=== PATIENT | male | born 1940 | race Caucasian/White ===

== ENCOUNTER 2018-11-25 11:13 | Inpatient (IN) | payer MEDICARE, MEDICAID ==
[2018-11-25 13:52] VITALS: BMI 25.7
[2018-11-25] MEDS ORDERED: Lorazepam 2 MG/ML VIAL SLOW IVP SCH (15:15)
--- NOTE | 2018-11-25 15:58 | MRI ---
MRI BRAIN WITHOUT CONTRAST: HISTORY: CVA. Slurred speech with right-sided weakness and facial droop COMPARISON: 02/24/2005 CORRELATION: CT scan from 11/25/2018. FINDINGS: No restricted diffusion is seen. There are multiple foci of T2 prolongation in the periventricular wh ite matter, consistent with chronic small vessel ischemic disease. The ventricular size is appropriate and the basilar cisterns are patent. Changes of cortical atrophy are present. No evidence of acute infarct, hemorrhage, midline shift or abnormal extra-axial fluid collections is seen. The visualized paranasal sinuses and mastoid air cells are well-aerated. IMPRESSION: No evidence of acute intracranial process.
--- NOTE | 2018-11-25 16:17 | ULT ---
Ultrasound Doppler duplex carotid: DATE: 11/25/2018 HISTORY: 78-year-old male with acute stroke symptoms. TECHNIQUE: Grayscale, color-flow, and spectral analysis, of major arteries of neck. FINDINGS: Moderate sized at least one atheromatous calcified plaque at origin of right internal carotid. Multifocal moderate sized atheromatous calcified plaque at proximal left internal carotid, including origin. Multifocal tiny atherosclerotic plaque in left common carotid. Highest peak systolic velocities in the internal carotid arteries are 55 cm/s on the right and 100 cm /s on the left. No left vertebral artery blood flow is detected. Right vertebral artery flow is antegrade. IMPRESSION: 1. Left vertebral artery flow not detected. 2. Atherosclerosis of carotid arteries, especially left internal carotid. 3. No evidence of hemodynamically significant stenosis within the visualized cervical portions of the internal carotid arteries.
[2018-11-25] MEDS: Atorvastatin Calcium 40 MG TAB PO SCH (20:44)
--- NOTE | 2018-11-25 22:52 | HP ---
PRIMARY CARE PHYSICIAN: Stefano Hunt MD CHIEF COMPLAINT: Right-sided motor deficits, weakness, slurred speech and right-sided facial droop. HISTORY OF PRESENT ILLNESS: Mr. Villagran is a 78-year-old man with a past medical history of hypertension, previous CVA in January 2014, and chronic kidney disease, who had presented to outside [place] ED or earlier today after he has been experiencing slurred speech and right-sided weakness over the last 2 to 3 days. He states that he has also been have been a slight facial droop along with an unsteady gait and gaze to the right. His workup included a portable chest x-ray, which found no acute cardiopulmonary findings. He also underwent a CT of brain without contrast, which showed no acute intracranial findings, however, multiple tiny old lacunar infarctions in the bilateral corpus striatum and thalami were noted along with chronic ischemic white matter changes. He was given a full dose of aspirin and then transferred to [facility] for further workup and management of his presumable stroke. Upon arriving, he had denied any fever, chills, any headache or blurred vision, chest pain, palpitations, shortness of breath, abdominal pain, nausea, vomiting. However, does state that he is having the right-sided weakness as mentioned above along with some frat-ex-uynwnejg slurred speech and right leg weakness. He had stated that it felt like he was almost drunk, but he had denied any alcohol use. His labs showed consistency for his CKD with a creatinine of 2.76 and estimated GFR of 22, and further workup pending at this time. REVIEW OF SYSTEMS: All other systems reviewed and found to be negative unless mentioned in HPI. PAST MEDICAL HISTORY: Hypertension, CVA in 2013, and chronic kidney disease stage 4. PAST SURGICAL HISTORY: He had left shoulder surgery. PSYCHIATRIC HISTORY: None. SOCIAL HISTORY: The patient denies alcohol, tobacco, or illicit drug use. He currently lives home alone. KNOWN ALLERGIES: No known drug allergies. CURRENT HOME MEDICATIONS: 1. Aspirin 81 mg daily. 2. Atenolol 50 mg oral daily. PHYSICAL EXAMINATION: VITAL SIGNS: BP 155/82, pulse 54, respirations 16, temperature 98.8, O2 saturations 100% on room air. GENERAL: The patient is awake, alert, and oriented x3. He is currently lying comfortably in bed and in no acute distress. His close friend is at bedside. HEENT: Atraumatic, normocephalic. Pupils are round and reactive to light. Extraocular muscles intact. Moist mucous membranes noted. Poor oral hygiene noted. NECK: Soft, supple. Trachea midline. CARDIOVASCULAR: Positive S1 and S2. Slightly bradycardic on the monitor. Otherwise, no murmur auscultated. RESPIRATORY: Clear to auscultation bilaterally. No wheezes, rales, rhonchi. ABDOMEN: Soft, nontender. Bowel sounds present. MUSCULOSKELETAL: Does have normal range of motion with no edema noted. NEUROLOGIC: Cranial nerves 2 through 12 grossly intact. He does appear to have some slurred speech along with some numbness and weakness on the right side and drift of his right lower extremity. SKIN: Warm, dry, and intact. No rashes. No ulceration noted. PSYCHIATRIC: Good mood and affect. LABORATORY DATA: WBC 8.1, RBC 4.11, hemoglobin 12.5, hematocrit 38.3, platelet 187. Sodium 142, potassium 4.7, anion gap 15, BUN 28, creatinine 2.76, estimated GFR 22, glucose 100. Troponin less than 0.010. BNP 35.9. DIAGNOSTIC IMAGING: Portable chest x-ray showed no acute findings. CT brain without contrast showed no acute intracranial findings, however, multiple tiny old lacunar infarctions in the bilateral corpus striatum and thalami noted along with chronic ischemic white matter changes. ASSESSMENT/PLAN: 1. Possible cerebrovascular accident. We will order an MRI of brain without contrast, carotid Dopplers and echocardiogram for further evaluation. He will be started on a full dose aspirin along with statin therapy. A consult was placed for Dr. Orourke for further recommendations and stroke team is also consulted. 2. Hypertension. We will monitor blood pressure and other vital signs closely. Due to some mild bradycardia, his home dose of atenolol will be held at this time and we will potentially restart once his heart rate improves. 3. Chronic kidney disease stage 4. We will repeat BMP in the morning, but this appears to be at baseline. 4. Deep venous thrombosis and gastrointestinal prophylaxis. 5. Code status. Full code. 6. Surrogate decision maker is Manan Murphy. DISPOSITION: Pending further workup and clinical findings. Job ID: [id number]
[2018-11-26 01:42] LABS: Bacteria/HPF None Seen HPF (None Seen); Bilirubin Negative (Negative); Blood, Urine 2+ (Negative); Clarity Clear (Clear); Glucose, Urine (Dipstick) Normal (Negative); Leukocyte 25 Leu/uL (Negative); Nitrite Negative (Negative); Protein, Urine (Dipstick) Negative (Neg-Trace); RBC/HPF Greater than 50 HPF (0-3); Squamous Epithelial 0-3 HPF (0-3); Urobilinogen Normal mg/dL (Less than 2)
[2018-11-26 01:43] LABS: Urine Culture Reflex Yes Yes
[2018-11-26 04:15] LABS: #Basophils 0.1 thou/uL (0.0-0.2); #Eosinphils 0.1 thou/uL (0.0-0.7); #Lymphocytes 2.9 thou/uL (1.20-3.40); #Monocytes 0.8 thou/uL (0.11-0.59); #Neutrophils 7.6 thou/uL (1.40-6.50); %Basophils 0.5 % (0.0-1.0); %Eosinophils 1.1 % (0.0-10.0); %Lymphocytes 25.6 % (21.0-51.0); %Monocytes 6.9 % (0.0-10.0); Hemoglobin 13.1 g/dL (14.0-18.0); Mean Corpuscular HGB CONC 34.6 g/dL (32.0-36.0); Mean Corpuscular Hemoglobin 32.1 pg (27.0-31.0); Mean Corpuscular Volume 92.9 fL (78.0-98.0); Mean Platelet Volume 6.4 fL (7.4-10.4); Platelet Count 184 thou/uL (130-400); RBC Distribution Width 14.1 % (11.5-14.5); Red Blood Cell (RBC) Count 4.07 mill/uL (4.70-6.10); White Blood Cell (WBC) Count 11.5 thou/uL (4.8-10.8)
[2018-11-26 04:35] LABS: Anion Gap 13 mmol/L (10-20); BUN (Urea Nitrogen) 30 mg/dL (8.4-25.7); Calc. Creatinine Clearance 27 mL/min (70-130); Calcium 9.5 mg/dL (7.8-10.44); Carbon Dioxide 22 mmol/L (23-31); Cardiac Risk 8.8 (Less than 4.5); Chloride 110 mmol/L (98-107); Cholesterol 254 mg/dl (< 200 Desired); Estimated GFR-MDRD 27; Glucose 94 mg/dL (83-110); HDL Cholesterol 29 mg/dL (>60 Neg Risk); LDL Cholesterol, Calculated 162 mg/dL; Potassium 4.7 mmol/L (3.5-5.1); Sodium 140 mmol/L (136-145); Triglycerides 314 mg/dL (Less than 150)
[2018-11-26] MEDS ORDERED: Aspirin 81 mg Enteric Coated Tablet PO SCH (09:00)
[2018-11-26] MEDS: Aspirin 325 MG TAB PO SCH (09:23)
--- NOTE | 2018-11-26 09:54 | CON ---
DATE OF CONSULTATION: 11/26/2018 CONSULTING PHYSICIAN: Hospitalist Service. IMPRESSION: 1. Prior stroke with mild right facial asymmetry. 2. Hyperlipidemia. 3. Hypertension. PLAN: 1. Full-dose aspirin. 2. Statin to address his hyperlipidemia. 3. Echocardiogram. 4. The patient can be discharged home after his bladder issues have been addressed. HISTORY OF PRESENT ILLNESS: Mr. Villagran is a 78-year-old man, who reports that he felt like he has been more unsteady on his feet for the last 2 or 3 days. He was brought to the hospital for evaluation and subsequently transferred here. He reports a prior history of a stroke sometime back. He was reports taking medication for blood pressure, but nothing else. He was noted to have some facial droop and was admitted for further evaluation. His MRI of the brain did not reveal any evidence of an acute event. He has moderate amount of small-vessel ischemic changes that are chronic. His carotid ultrasound showed no left vertebral artery flow, but otherwise no significant stenosis. His vital signs have been stable. He is afebrile. LABORATORY STUDIES: Notable for a cholesterol ratio of 8.8. PAST MEDICAL HISTORY: Hypertension. ALLERGIES: NONE. SOCIAL HISTORY: No tobacco use. FAMILY HISTORY: Noncontributory. MEDICATIONS: Reviewed. REVIEW OF SYSTEMS: Ten-system review of systems is otherwise negative. PHYSICAL EXAMINATION: VITAL SIGNS: Blood pressure 162/85, pulse 68, respirations 16, and temperature 98.4. HEENT: Pupils equal and reactive. Conjunctivae clear. Oropharynx clear. NECK: Supple. No lymphadenopathy. EXTREMITIES: No cyanosis, clubbing, or edema. NEUROLOGIC: He is alert and cooperative. He is a bit hard of hearing, but follows commands appropriately. There is a subtle right facial droop. His motor exam showed good strength bilaterally. There is no fix or drift. He could stand independently and pace in place. Sensation is intact bilaterally. SUMMARY: This is an elderly man, who has felt a bit unsteady over the last 2 or 3 days. I do not see any acute neurologic changes based on his MRI and his exam. I would address his risk factors and he can be discharged home. Job ID: [id number]
[2018-11-26] MEDS ORDERED: Tamsulosin HCl 0.4 MG CAP PO SCH (14:45)
[2018-11-26] MEDS ORDERED: Prevnar 13-Val Conj/PF 0.5 ML SYRINGE IM ONE (15:00)
[2018-11-26] MEDS: Atorvastatin Calcium 40 MG TAB PO SCH (20:15)
--- NOTE | 2018-11-27 07:09 | PDOC.HOSPP ---
- Subjective Encounter Date: 11/26/18 Subjective: Complaints of the Pa. Says he is leaking around it when he feels the urge to void. - Objective Vital Signs & Weight: Vital Signs (12 hours) Temp Pulse Resp BP Pulse Ox 11/27/18 03:15 98 F 68 16 119/61 97 11/26/18 23:50 98.5 F 68 16 127/67 98 11/26/18 19:59 98.4 F 76 18 145/71 H 96 Weight Weight 164 lb 6.4 oz I&O: 11/26/18 11/27/18 11/28/18 06:59 06:59 06:59 Intake Total 480 920 Output Total 1450 450 Balance -970 470 Result Diagrams: 11/26/18 03:58 11/26/18 03:57 Hospitalist ROS - Medication Medications: Active Medications Generic Name Dose Route Start Last Admin Trade Name Freq PRN Reason Stop Dose Admin Aspirin 325 mg 11/26/18 09:00 11/26/18 09:23 Aspirin PO 325 mg DAILY EUGENIA Administration Atorvastatin Calcium 40 mg 11/25/18 21:00 11/26/18 20:15 Lipitor PO 40 mg HS EUGENIA Administration Lorazepam 1 mg 11/25/18 15:15 11/25/18 15:17 Ativan SLOW IVP 1 mg WILLCALL EUGENIA Administration - Exam General Appearance: NAD, awake alert Heart: RRR, no murmur, no gallops, no rubs, normal peripheral pulses Respiratory: CTAB, no wheezes, no rales, no ronchi, normal chest expansion, no tachypnea, normal percussion Gastrointestinal: soft, non-tender, non-distended, normal bowel sounds, no palpable masses, no hepatomegaly, no splenomegaly, no bruit Musculoskeletal: normal tone, normal strength, no muscle wasting Psychiatric: normal affect Hosp A/P (1) Dysarthria as late effect of stroke Code(s): I69.322 - DYSARTHRIA FOLLOWING CEREBRAL INFARCTION Status: Acute (2) Retention of urine Code(s): R33.9 - RETENTION OF URINE, UNSPECIFIED Status: Acute (3) CKD (chronic kidney disease), stage IV Code(s): N18.4 - CHRONIC KIDNEY DISEASE, STAGE 4 (SEVERE) Status: Acute (4) HTN (hypertension) Code(s): I10 - ESSENTIAL (PRIMARY) HYPERTENSION Status: Acute (5) HLD (hyperlipidemia) Code(s): E78.5 - HYPERLIPIDEMIA, UNSPECIFIED Status: Acute - Plan Appreciate Neuro recs. On Statin, Asa. Will DC Pa. If he is able to void, will consider DC home.
[2018-11-27] MEDS: Aspirin 325 MG TAB PO SCH (08:28)
[2018-11-27 08:53] LABS: #Eosinphils 0.1 thou/uL (0.0-0.7); #Lymphocytes 2.1 thou/uL (1.20-3.40); #Monocytes 0.6 thou/uL (0.11-0.59); #Neutrophils 5.3 thou/uL (1.40-6.50); %Basophils 0.1 % (0.0-1.0); %Eosinophils 1.1 % (0.0-10.0); %Lymphocytes 25.7 % (21.0-51.0); %Monocytes 7.8 % (0.0-10.0); %Neutrophils 65.3 % (42.0-75.0); Hemoglobin 12.7 g/dL (14.0-18.0); Mean Corpuscular HGB CONC 34.8 g/dL (32.0-36.0); Mean Platelet Volume 6.4 fL (7.4-10.4); Platelet Count 159 thou/uL (130-400); RBC Distribution Width 14.2 % (11.5-14.5); Red Blood Cell (RBC) Count 3.97 mill/uL (4.70-6.10); White Blood Cell (WBC) Count 8.1 thou/uL (4.8-10.8)
[2018-11-27 09:12] LABS: Anion Gap 13 mmol/L (10-20); BUN (Urea Nitrogen) 26 mg/dL (8.4-25.7); Calc. Creatinine Clearance 32 mL/min (70-130); Calcium 9.4 mg/dL (7.8-10.44); Carbon Dioxide 21 mmol/L (23-31); Chloride 108 mmol/L (98-107); Estimated GFR-MDRD 32; Glucose 96 mg/dL (83-110); Potassium 4.3 mmol/L (3.5-5.1); Sodium 138 mmol/L (136-145)
[2018-11-27] MEDS: Atorvastatin Calcium 40 MG TAB PO SCH (20:27)
--- NOTE | 2018-11-28 08:01 | PDOC.HOSPP ---
- Subjective Encounter Date: 11/27/18 Subjective: Doing well. No new complaints. - Objective Vital Signs & Weight: Vital Signs (12 hours) Temp Pulse Resp BP Pulse Ox 11/28/18 03:54 97.8 F 66 18 150/74 H 97 11/27/18 23:15 98.1 F 67 18 167/77 H 98 Weight Weight 164 lb 6.4 oz I&O: 11/27/18 11/28/18 11/29/18 06:59 06:59 06:59 Intake Total 920 805 Output Total 450 Balance 470 805 Result Diagrams: 11/27/18 08:44 11/27/18 08:44 Hospitalist ROS - Medication Medications: Active Medications Generic Name Dose Route Start Last Admin Trade Name Freq PRN Reason Stop Dose Admin Aspirin 325 mg 11/26/18 09:00 11/27/18 08:28 Aspirin PO 325 mg DAILY EUGENIA Administration Atorvastatin Calcium 40 mg 11/25/18 21:00 11/27/18 20:27 Lipitor PO 40 mg HS EUGENIA Administration Lorazepam 1 mg 11/25/18 15:15 11/25/18 15:17 Ativan SLOW IVP 1 mg WILLCALL EUGENIA Administration - Exam General Appearance: NAD, awake alert Heart: RRR, no murmur, no gallops, no rubs, normal peripheral pulses Respiratory: CTAB, no wheezes, no rales, no ronchi, normal chest expansion, no tachypnea, normal percussion Gastrointestinal: soft, non-tender, non-distended, normal bowel sounds, no palpable masses, no hepatomegaly, no splenomegaly, no bruit Extremities: no cyanosis, no clubbing, no edema Skin: normal turgor, no lesions, no rashes Neurological: no weakness, no new deficit, speech deficit Musculoskeletal: normal tone, normal strength Psychiatric: normal affect, normal behavior, A&O x 3 Hosp A/P (1) Dysarthria as late effect of stroke Code(s): I69.322 - DYSARTHRIA FOLLOWING CEREBRAL INFARCTION Status: Acute (2) Retention of urine Code(s): R33.9 - RETENTION OF URINE, UNSPECIFIED Status: Acute (3) CKD (chronic kidney disease), stage IV Code(s): N18.4 - CHRONIC KIDNEY DISEASE, STAGE 4 (SEVERE) Status: Acute (4) HTN (hypertension) Code(s): I10 - ESSENTIAL (PRIMARY) HYPERTENSION Status: Acute (5) HLD (hyperlipidemia) Code(s): E78.5 - HYPERLIPIDEMIA, UNSPECIFIED Status: Acute - Plan Appreciate Neuro recs. On Statin, Asa. Voiding well without the Pa. Will continue with the Tamsulosin. Recs for therapy is for rehab. He has family coming today from [place]. He would like to wait for them to make any decisions regarding disposition.
[2018-11-28] MEDS: Aspirin 325 MG TAB PO SCH (08:26)
[2018-11-28 11:40] VITALS: TEMP 97.8
[2018-11-28 12:47] VITALS: BP 164/79
[2018-11-28] MEDS ORDERED: Tamsulosin HCl 0.4 MG CAP PO SCH (21:00)
== END 2018-11-28 12:59 | DRG 57 ==
LOC: ERS 11:13 → 2SE 12:28 → OBSVTOIN 17:45
PROVIDERS: ADMIT Internal Medicine; ATTEND Internal Medicine
DX: I69.322 Dysarthria following cerebral infarction (principal); N18.4 Chronic kidney disease, stage 4 (severe); R53.1 Weakness; Z60.2 Problems related to living alone; R29.810 Facial weakness; I12.9 Hypertensive chronic kidney disease with stage 1 through stage 4 chronic kidney disease, or unspecified chronic kidney disease; E78.5 Hyperlipidemia, unspecified; R33.9 Retention of urine, unspecified; Z79.899 Other long term (current) drug therapy; Z79.82 Long term (current) use of aspirin; R00.1 Bradycardia, unspecified
CPT/HCPCS: 36415; 70551; 80048; 80061; 81001; 85025; 87086; 93306; 93880; 99284; J2060

== ENCOUNTER 2021-02-02 18:53 | Inpatient (IN) | payer MEDICARE, MEDICAID ==
[2021-02-02 19:17] LABS: #Basophils 0.1 thou/uL (0.0-0.2); #Eosinphils 0.1 thou/uL (0.0-0.7); #Lymphocytes 1.6 thou/uL (1.20-3.40); #Monocytes 0.6 thou/uL (0.11-0.59); #Neutrophils 6.4 thou/uL (1.40-6.50); %Basophils 0.7 % (0.0-1.0); %Eosinophils 0.8 % (0.0-10.0); %Lymphocytes 18.5 % (21.0-51.0); %Monocytes 6.7 % (0.0-10.0); %Neutrophils 73.3 % (42.0-75.0); Hemoglobin 15.3 g/dL (14.0-18.0); Mean Corpuscular HGB CONC 34.8 g/dL (32.0-36.0); Mean Corpuscular Hemoglobin 31.2 pg (27.0-31.0); Mean Corpuscular Volume 89.6 fL (78.0-98.0); Mean Platelet Volume 6.4 fL (7.4-10.4); Platelet Count 206 thou/uL (130-400); RBC Distribution Width 12.8 % (11.5-14.5); Red Blood Cell (RBC) Count 4.91 mill/uL (4.70-6.10); White Blood Cell (WBC) Count 8.7 thou/uL (4.8-10.8)
[2021-02-02 19:40] LABS: Bacteria/HPF None Seen HPF (None Seen); Bilirubin Negative (Negative); Blood, Urine 1+ (Negative); Clarity Clear (Clear); Glucose, Urine (Dipstick) Normal (Negative); Ketone, Urine Negative (Negative); Leukocyte Negative Leu/uL (Negative); Nitrite Negative (Negative); Protein, Urine (Dipstick) Negative (Neg-Trace); Specific Gravity, Urine 1.013 (1.002-1.036); Squamous Epithelial None Seen HPF (0-3); Urobilinogen Normal mg/dL (Less than 2); WBC/HPF 0-3 HPF (0-3)
[2021-02-02 19:43] LABS: Amphetamine Not Detected (NotDetected); Barbiturates Screen Not Detected (NotDetected); Benzodiazepine Screen Not Detected (NotDetected); Cocaine Metabolite Screen Not Detected (NotDetected); Methadone Not Detected (NotDetected); Methamphetamine Not Detected (NotDetected); Opiate Screen Not Detected (NotDetected); Oxycodone Screen Not Detected (NotDetected); Phencyclidine (PCP) Not Detected (NotDetected); THC/Cannabinoid Screen Not Detected (NotDetected); Tricyclic Screen Not Detected (NotDetected)
[2021-02-02 19:47] LABS: ALT (SGPT) 10 U/L (8-55); AST (SGOT) 13 U/L (5-34); Acetaminophen Less than 6.0 mcg/mL (10.0-30.0); Albumin 4.5 g/dL (3.4-4.8); Alcohol Less than 10 mg/dL (Less than 10); Alkaline Phosphatase 131 U/L (40-110); Anion Gap 15 mmol/L (10-20); BUN (Urea Nitrogen) 42 mg/dL (8.4-25.7); Bilirubin, Total 0.8 mg/dL (0.2-1.2); Calc. Creatinine Clearance 0 mL/min (70-130); Calcium 9.7 mg/dL (7.8-10.44); Carbon Dioxide 23 mmol/L (23-31); Chloride 106 mmol/L (98-107); Glucose 86 mg/dL (83-110); Protein, Total 7.5 g/dL (5.8-8.1); Salicylate Less than 8.0 mg/dL (15.0-30.0); Sodium 139 mmol/L (136-145)
[2021-02-02 20:07] LABS: CKMB 1.7 ng/mL (0-6.6)
[2021-02-02] MEDS ORDERED: hydrALAZINE 20 MG/ML VIAL SLOW IVP PRN (22:07)
[2021-02-02] MEDS ORDERED: Ondansetron PF 4 MG/2 ML Vial IVP PRN (22:07)
[2021-02-02] MEDS ORDERED: Labetalol HCl 100 MG/20 ML VIAL SLOW IVP PRN (22:07)
[2021-02-02] MEDS ORDERED: Aspirin 325 mg Enteric Coated Tablet PO SCH (22:45)
[2021-02-02 22:57] LABS: Troponin I 0.019 ng/mL (< 0.028)
[2021-02-02] MEDS: Acetaminophen 325 MG TAB PO PRN (23:15)
[2021-02-03 01:47] LABS: Troponin I 0.021 ng/mL (< 0.028)
[2021-02-03 05:40] LABS: #Eosinphils 0.1 thou/uL (0.0-0.7); #Lymphocytes 1.7 thou/uL (1.20-3.40); #Monocytes 0.8 thou/uL (0.11-0.59); #Neutrophils 8.6 thou/uL (1.40-6.50); %Basophils 0.2 % (0.0-1.0); %Eosinophils 0.5 % (0.0-10.0); %Lymphocytes 15.2 % (21.0-51.0); %Monocytes 6.9 % (0.0-10.0); %Neutrophils 77.1 % (42.0-75.0); Mean Corpuscular HGB CONC 34.4 g/dL (32.0-36.0); Mean Corpuscular Hemoglobin 30.6 pg (27.0-31.0); Mean Platelet Volume 6.4 fL (7.4-10.4); Platelet Count 187 thou/uL (130-400); RBC Distribution Width 12.7 % (11.5-14.5); Red Blood Cell (RBC) Count 4.57 mill/uL (4.70-6.10); White Blood Cell (WBC) Count 11.2 thou/uL (4.8-10.8)
[2021-02-03 06:04] LABS: Anion Gap 15 mmol/L (10-20); BUN (Urea Nitrogen) 41 mg/dL (8.4-25.7); Calc. Creatinine Clearance 24 mL/min (70-130); Calcium 9.5 mg/dL (7.8-10.44); Carbon Dioxide 20 mmol/L (23-31); Cardiac Risk 6.9 (Less than 4.5); Chloride 107 mmol/L (98-107); Cholesterol 227 mg/dl (< 200 Desired); Glucose 92 mg/dL (83-110); HDL Cholesterol 33 mg/dL (>60 Neg Risk); LDL Cholesterol, Calculated 174 mg/dL; Potassium 4.5 mmol/L (3.5-5.1); Sodium 137 mmol/L (136-145); Triglycerides 101 mg/dL (Less than 150)
[2021-02-03] MEDS ORDERED: Enoxaparin Sodium 30 MG/0.3 ML SYRINGE SC SCH (09:00)
[2021-02-03] MEDS ORDERED: Lorazepam 2 MG/ML VIAL SLOW IVP SCH (09:30)
[2021-02-03] MEDS: Heparin 5,000 UNITS/ML VIAL SC SCH ×3 (09:49→22:35)
[2021-02-03] MEDS: Aspirin 81 mg Enteric Coated Tablet PO SCH (09:49)
[2021-02-03 11:33] LABS: SARS-CoV-2 PCR by NAA Not Detected (NotDetected)
[2021-02-03] MEDS: Atorvastatin Calcium 40 MG TAB PO SCH (22:00)
[2021-02-03] MEDS: Tamsulosin HCl 0.4 MG CAP PO SCH (22:01)
[2021-02-03] MEDS: Senokot S 8.6-50 MG TAB PO SCH (22:01)
[2021-02-04 05:57] LABS: #Eosinphils 0.1 thou/uL (0.0-0.7); #Lymphocytes 1.7 thou/uL (1.20-3.40); #Monocytes 0.8 thou/uL (0.11-0.59); #Neutrophils 7.6 thou/uL (1.40-6.50); %Basophils 0.3 % (0.0-1.0); %Eosinophils 0.7 % (0.0-10.0); %Lymphocytes 16.9 % (21.0-51.0); %Monocytes 8.2 % (0.0-10.0); %Neutrophils 73.9 % (42.0-75.0); Hemoglobin 14.7 g/dL (14.0-18.0); Mean Corpuscular HGB CONC 33.7 g/dL (32.0-36.0); Mean Corpuscular Hemoglobin 30.2 pg (27.0-31.0); Mean Corpuscular Volume 89.7 fL (78.0-98.0); Mean Platelet Volume 6.6 fL (7.4-10.4); Platelet Count 199 thou/uL (130-400); RBC Distribution Width 12.7 % (11.5-14.5); Red Blood Cell (RBC) Count 4.85 mill/uL (4.70-6.10); White Blood Cell (WBC) Count 10.2 thou/uL (4.8-10.8)
[2021-02-04 06:16] LABS: Anion Gap 18 mmol/L (10-20); BUN (Urea Nitrogen) 39 mg/dL (8.4-25.7); Calc. Creatinine Clearance 23 mL/min (70-130); Calcium 9.8 mg/dL (7.8-10.44); Carbon Dioxide 19 mmol/L (23-31); Chloride 106 mmol/L (98-107); Glucose 85 mg/dL (83-110); Potassium 4.5 mmol/L (3.5-5.1); Sodium 138 mmol/L (136-145)
[2021-02-04] MEDS: Polyethylene Glycol 3350 17 GM Packet PO SCH (07:46)
[2021-02-04] MEDS: Senokot S 8.6-50 MG TAB PO SCH ×2 (07:46→21:04)
[2021-02-04] MEDS: Aspirin 81 mg Enteric Coated Tablet PO SCH (07:47)
[2021-02-04] MEDS: Atenolol 50 MG TAB PO SCH (07:47)
[2021-02-04] MEDS ORDERED: Lorazepam 2 MG/ML VIAL ONE (07:52)
[2021-02-04] MEDS ORDERED: Lorazepam 2 MG/ML VIAL SLOW IVP SCH ×2 (08:00→14:30)
[2021-02-04] MEDS: Heparin 5,000 UNITS/ML VIAL SC SCH ×3 (08:00→21:06)
[2021-02-04] MEDS: Dextrose 5 % And 0.9 % NaCl 1,000 ML IV SCH (17:00)
[2021-02-04] MEDS: Atorvastatin Calcium 40 MG TAB PO SCH (21:04)
[2021-02-04] MEDS: Tamsulosin HCl 0.4 MG CAP PO SCH (21:05)
[2021-02-05] MEDS: Dextrose 5 % And 0.9 % NaCl 1,000 ML IV SCH ×3 (03:21→22:52)
[2021-02-05 05:32] LABS: #Eosinphils 0.1 thou/uL (0.0-0.7); #Lymphocytes 1.5 thou/uL (1.20-3.40); #Monocytes 0.8 thou/uL (0.11-0.59); %Basophils 0.2 % (0.0-1.0); %Eosinophils 0.5 % (0.0-10.0); %Lymphocytes 14.8 % (21.0-51.0); %Monocytes 7.6 % (0.0-10.0); %Neutrophils 76.8 % (42.0-75.0); Hemoglobin 15.2 g/dL (14.0-18.0); Mean Corpuscular HGB CONC 34.3 g/dL (32.0-36.0); Mean Corpuscular Hemoglobin 30.9 pg (27.0-31.0); Mean Platelet Volume 6.4 fL (7.4-10.4); Platelet Count 227 thou/uL (130-400); RBC Distribution Width 12.7 % (11.5-14.5); Red Blood Cell (RBC) Count 4.93 mill/uL (4.70-6.10); White Blood Cell (WBC) Count 10.4 thou/uL (4.8-10.8)
[2021-02-05 05:56] LABS: Anion Gap 15 mmol/L (10-20); BUN (Urea Nitrogen) 43 mg/dL (8.4-25.7); Calc. Creatinine Clearance 22 mL/min (70-130); Calcium 9.7 mg/dL (7.8-10.44); Carbon Dioxide 20 mmol/L (23-31); Chloride 110 mmol/L (98-107); Glucose 156 mg/dL (83-110); Sodium 141 mmol/L (136-145)
[2021-02-05] MEDS: Aspirin 81 mg Enteric Coated Tablet PO SCH (08:46)
[2021-02-05] MEDS: Atenolol 50 MG TAB PO SCH (08:47)
[2021-02-05] MEDS: Polyethylene Glycol 3350 17 GM Packet PO SCH (08:47)
[2021-02-05] MEDS: Senokot S 8.6-50 MG TAB PO SCH ×2 (08:47→21:09)
[2021-02-05] MEDS: Heparin 5,000 UNITS/ML VIAL SC SCH ×3 (08:47→21:17)
[2021-02-05] MEDS ORDERED: hydrALAZINE 25 MG TAB PO SCH (16:00)
[2021-02-05] MEDS: cloNIDine 0.3mg/24 Hour PATCH TD SCH (16:40)
[2021-02-05] MEDS ORDERED: Amino Acids 4.25 %/Dextrose 5% 2,000 ML BAG IV SCH (17:00)
[2021-02-05] MEDS ORDERED: Amino Acids 4.25 %/Dextrose 5% 2,000 ML IV SCH (17:00)
[2021-02-05] MEDS: Amino Acids 4.25 %/Dextrose 5% 1,000 ML IV SCH (18:47)
[2021-02-05] MEDS ORDERED: hydrALAZINE 20 MG/ML VIAL SLOW IVP PRN (20:12)
[2021-02-05] MEDS: Atorvastatin Calcium 40 MG TAB PO SCH (21:08)
[2021-02-05] MEDS: Tamsulosin HCl 0.4 MG CAP PO SCH (21:09)
[2021-02-05] MEDS: hydrALAZINE 25 MG TAB PO SCH (21:09)
[2021-02-06] MEDS ORDERED: Metoprolol Tartrate 5 MG/5 ML VIAL IVP SCH (02:45)
[2021-02-06] MEDS ORDERED: hydrALAZINE 20 MG/ML VIAL SLOW IVP PRN (03:56)
[2021-02-06] MEDS ORDERED: Diltiazem 125 MG in Sodium Chloride 0.9% 100 ML IVPB SCH ×2 (04:30→08:51)
[2021-02-06] MEDS ORDERED: Digoxin 0.5 MG/2 ML AMP SLOW IVP SCH ×2 (05:15→09:00)
[2021-02-06 05:24] LABS: Anion Gap 15 mmol/L (10-20); BUN (Urea Nitrogen) 41 mg/dL (8.4-25.7); Calc. Creatinine Clearance 26 mL/min (70-130); Calcium 9.6 mg/dL (7.8-10.44); Carbon Dioxide 18 mmol/L (23-31); Chloride 113 mmol/L (98-107); Glucose 120 mg/dL (83-110); Magnesium 1.8 mg/dL (1.6-2.6); Potassium 3.8 mmol/L (3.5-5.1); Sodium 142 mmol/L (136-145)
[2021-02-06 05:30] LABS: Phosphorus 1.3 mg/dL (2.3-4.7)
[2021-02-06 05:45] LABS: Troponin I 1.391 ng/mL (< 0.028)
[2021-02-06] MEDS: Heparin 5,000 UNITS/ML VIAL SC SCH (09:51)
[2021-02-06] MEDS: Senokot S 8.6-50 MG TAB PO SCH ×2 (09:52→21:40)
[2021-02-06] MEDS: Polyethylene Glycol 3350 17 GM Packet PO SCH (09:52)
[2021-02-06] MEDS: Atenolol 50 MG TAB PO SCH (09:53)
[2021-02-06] MEDS: hydrALAZINE 25 MG TAB PO SCH ×2 (09:53→21:40)
[2021-02-06] MEDS: Aspirin 300 MG Suppository PR SCH (09:57)
[2021-02-06 12:18] LABS: Troponin I 6.095 ng/mL (< 0.028)
[2021-02-06] MEDS ORDERED: Enoxaparin Sodium 80 MG/0.8 ML SYRINGE SC SCH (13:15)
[2021-02-06 15:49] LABS: Troponin I 11.345 ng/mL (< 0.028)
[2021-02-06] MEDS: Dextrose 5 % And 0.9 % NaCl 1,000 ML IV SCH ×2 (15:58→18:06)
[2021-02-06] MEDS: Nystatin Powder 15 GM BOT TOP PRN (15:58)
[2021-02-06] MEDS: Amino Acids 4.25 %/Dextrose 5% 1,000 ML IV SCH (20:01)
[2021-02-06] MEDS: Atorvastatin Calcium 40 MG TAB PO SCH (21:40)
[2021-02-06] MEDS: Tamsulosin HCl 0.4 MG CAP PO SCH (21:40)
[2021-02-07] MEDS: Dextrose 5 % And 0.9 % NaCl 1,000 ML IV SCH ×3 (05:30→14:14)
[2021-02-07 05:40] LABS: Anion Gap 13 mmol/L (10-20); BUN (Urea Nitrogen) 54 mg/dL (8.4-25.7); Calc. Creatinine Clearance 25 mL/min (70-130); Calcium 9.3 mg/dL (7.8-10.44); Carbon Dioxide 18 mmol/L (23-31); Chloride 113 mmol/L (98-107); Glucose 120 mg/dL (83-110); Potassium 3.8 mmol/L (3.5-5.1); Sodium 140 mmol/L (136-145)
[2021-02-07] MEDS ORDERED: Diltiazem 125 MG in Sodium Chloride 0.9% 100 ML IVPB SCH (08:45)
[2021-02-07 10:54] LABS: CKMB 12.8 ng/mL (0-6.6)
[2021-02-07] MEDS ORDERED: Aspirin Chewable 81 MG TAB PER TUBE SCH (12:00)
[2021-02-07] MEDS: Atenolol 50 MG TAB PO SCH (12:02)
[2021-02-07] MEDS: hydrALAZINE 25 MG TAB PO SCH ×2 (12:02→20:02)
[2021-02-07] MEDS: Polyethylene Glycol 3350 17 GM Packet PO SCH (12:02)
[2021-02-07] MEDS: Enoxaparin Sodium 80 MG/0.8 ML SYRINGE SC SCH (12:03)
[2021-02-07] MEDS: Senokot S 8.6-50 MG TAB PO SCH ×2 (12:03→20:03)
[2021-02-07] MEDS: Nystatin 500,000 UNITS/5 ML UDCUP SSW SCH ×3 (12:03→20:03)
[2021-02-07] MEDS: Aspirin 300 MG Suppository PR SCH (14:23)
[2021-02-07] MEDS: Atorvastatin Calcium 40 MG TAB PO SCH (20:03)
[2021-02-07] MEDS: Tamsulosin HCl 0.4 MG CAP PO SCH (20:03)
[2021-02-08] MEDS: Dextrose 5 % And 0.9 % NaCl 1,000 ML IV SCH ×3 (00:32→20:18)
[2021-02-08] MEDS: Acetaminophen 325 MG TAB PO PRN ×3 (03:26→23:58)
[2021-02-08 05:54] LABS: Anion Gap 12 mmol/L (10-20); BUN (Urea Nitrogen) 44 mg/dL (8.4-25.7); Calc. Creatinine Clearance 27 mL/min (70-130); Calcium 8.7 mg/dL (7.8-10.44); Carbon Dioxide 16 mmol/L (23-31); Chloride 115 mmol/L (98-107); Glucose 128 mg/dL (83-110); Potassium 3.8 mmol/L (3.5-5.1); Sodium 139 mmol/L (136-145)
[2021-02-08] MEDS: Nystatin 500,000 UNITS/5 ML UDCUP SSW SCH ×4 (10:38→20:13)
[2021-02-08] MEDS: Senokot S 8.6-50 MG TAB PO SCH ×2 (10:38→20:13)
[2021-02-08] MEDS: Aspirin Chewable 81 MG TAB PER TUBE SCH (10:38)
[2021-02-08] MEDS: Atenolol 50 MG TAB PO SCH (10:40)
[2021-02-08] MEDS: hydrALAZINE 25 MG TAB PO SCH ×2 (10:40→20:12)
[2021-02-08] MEDS: Polyethylene Glycol 3350 17 GM Packet PO SCH (10:40)
[2021-02-08] MEDS: Enoxaparin Sodium 80 MG/0.8 ML SYRINGE SC SCH (13:10)
[2021-02-08] MEDS: Tamsulosin HCl 0.4 MG CAP PO SCH (20:12)
[2021-02-08] MEDS: Atorvastatin Calcium 40 MG TAB PO SCH (20:13)
[2021-02-08] MEDS ORDERED: Lorazepam 2 MG/ML VIAL SLOW IVP SCH (21:13)
[2021-02-09] MEDS: Dextrose 5 % And 0.9 % NaCl 1,000 ML IV SCH ×2 (05:42→17:17)
[2021-02-09] MEDS: hydrALAZINE 25 MG TAB PO SCH ×2 (08:23→21:28)
[2021-02-09] MEDS: Senokot S 8.6-50 MG TAB PO SCH ×2 (08:23→21:29)
[2021-02-09] MEDS: Aspirin Chewable 81 MG TAB PER TUBE SCH (08:23)
[2021-02-09] MEDS: Nystatin 500,000 UNITS/5 ML UDCUP SSW SCH ×4 (08:23→21:29)
[2021-02-09] MEDS: Atenolol 50 MG TAB PO SCH (08:23)
[2021-02-09] MEDS: Polyethylene Glycol 3350 17 GM Packet PO SCH (08:24)
[2021-02-09] MEDS: Enoxaparin Sodium 80 MG/0.8 ML SYRINGE SC SCH (12:43)
[2021-02-09] MEDS: Tamsulosin HCl 0.4 MG CAP PO SCH (21:28)
[2021-02-09] MEDS: Atorvastatin Calcium 40 MG TAB PO SCH (21:29)
[2021-02-10 11:21] LABS: SARS-CoV-2 PCR by NAA Not Detected (NotDetected)
[2021-02-10] MEDS ORDERED: ceFAZolin 2 GM/DEX 5% 100 ML BAG ONE (12:49)
[2021-02-10] MEDS ORDERED: PROPOFOL 200 MG/20 ML VIAL ONE (12:59)
[2021-02-10] MEDS ORDERED: Lidocaine 1% PF 5 ML VIAL ONE (12:59)
[2021-02-10] MEDS: Aspirin Chewable 81 MG TAB PER TUBE SCH (15:00)
[2021-02-10] MEDS: hydrALAZINE 25 MG TAB PO SCH ×2 (15:00→21:17)
[2021-02-10] MEDS: Polyethylene Glycol 3350 17 GM Packet PO SCH (15:00)
[2021-02-10] MEDS: Nystatin 500,000 UNITS/5 ML UDCUP SSW SCH ×4 (15:00→21:16)
[2021-02-10] MEDS: Enoxaparin Sodium 80 MG/0.8 ML SYRINGE SC SCH (15:01)
[2021-02-10] MEDS: Senokot S 8.6-50 MG TAB PO SCH ×2 (15:01→21:16)
[2021-02-10] MEDS: Atenolol 50 MG TAB PO SCH (15:03)
[2021-02-10] MEDS: Acetaminophen 325 MG TAB PO PRN (15:03)
[2021-02-10] MEDS: Atorvastatin Calcium 40 MG TAB PO SCH (21:16)
[2021-02-10] MEDS: Tamsulosin HCl 0.4 MG CAP PO SCH (21:17)
[2021-02-11] MEDS: Nystatin 500,000 UNITS/5 ML UDCUP SSW SCH ×4 (09:37→22:10)
[2021-02-11] MEDS: hydrALAZINE 25 MG TAB PO SCH ×2 (09:37→22:10)
[2021-02-11] MEDS: Aspirin Chewable 81 MG TAB PER TUBE SCH (09:37)
[2021-02-11] MEDS: Senokot S 8.6-50 MG TAB PO SCH ×2 (09:37→22:11)
[2021-02-11] MEDS: Polyethylene Glycol 3350 17 GM Packet PO SCH (09:37)
[2021-02-11] MEDS: Atenolol 50 MG TAB PO SCH (09:37)
[2021-02-11] MEDS ORDERED: Fentanyl 100 MCG/2 ML VIAL SLOW IVP PRN (13:20)
[2021-02-11] MEDS ORDERED: Fentanyl 100 MCG/2 ML VIAL SLOW IVP SCH (13:20)
[2021-02-11 14:34] LABS: #Eosinphils 0.1 thou/uL (0.0-0.7); #Neutrophils 7.8 thou/uL (1.40-6.50); %Basophils 0.1 % (0.0-1.0); %Eosinophils 1.2 % (0.0-10.0); %Monocytes 9.6 % (0.0-10.0); %Neutrophils 79.1 % (42.0-75.0); Hemoglobin 12.2 g/dL (14.0-18.0); Mean Corpuscular HGB CONC 33.3 g/dL (32.0-36.0); Mean Corpuscular Volume 90.1 fL (78.0-98.0); Mean Platelet Volume 7.4 fL (7.4-10.4); Platelet Count 204 thou/uL (130-400); RBC Distribution Width 12.5 % (11.5-14.5); Red Blood Cell (RBC) Count 4.05 mill/uL (4.70-6.10); White Blood Cell (WBC) Count 9.9 thou/uL (4.8-10.8)
[2021-02-11] MEDS: Enoxaparin Sodium 80 MG/0.8 ML SYRINGE SC SCH (14:39)
[2021-02-11] MEDS: Tamsulosin HCl 0.4 MG CAP PO SCH (22:11)
[2021-02-11] MEDS: Atorvastatin Calcium 40 MG TAB PO SCH (22:11)
[2021-02-12] MEDS: Acetaminophen 325 MG TAB PO PRN (00:43)
[2021-02-12] MEDS: Nystatin 500,000 UNITS/5 ML UDCUP SSW SCH ×4 (10:23→21:48)
[2021-02-12] MEDS: Aspirin Chewable 81 MG TAB PER TUBE SCH (10:24)
[2021-02-12] MEDS: cloNIDine 0.3mg/24 Hour PATCH TD SCH (10:24)
[2021-02-12] MEDS: Polyethylene Glycol 3350 17 GM Packet PO SCH (10:24)
[2021-02-12] MEDS: hydrALAZINE 25 MG TAB PO SCH ×2 (10:24→21:52)
[2021-02-12] MEDS: Atenolol 50 MG TAB PO SCH (10:24)
[2021-02-12] MEDS: Senokot S 8.6-50 MG TAB PO SCH ×2 (10:24→21:48)
[2021-02-12] MEDS ORDERED: Fleet Enema 133 ML BOT PR SCH (14:15)
[2021-02-12] MEDS: Enoxaparin Sodium 80 MG/0.8 ML SYRINGE SC SCH (15:38)
[2021-02-12 17:26] LABS: Anion Gap 14 mmol/L (10-20); BUN (Urea Nitrogen) 37 mg/dL (8.4-25.7); Calc. Creatinine Clearance 29 mL/min (70-130); Calcium 9.7 mg/dL (7.8-10.44); Carbon Dioxide 21 mmol/L (23-31); Chloride 105 mmol/L (98-107); Glucose 118 mg/dL (83-110); Sodium 136 mmol/L (136-145)
[2021-02-12] MEDS: Tamsulosin HCl 0.4 MG CAP PO SCH (21:48)
[2021-02-12] MEDS: Atorvastatin Calcium 40 MG TAB PO SCH (21:48)
[2021-02-13] MEDS: Nystatin Powder 15 GM BOT TOP PRN (09:00)
[2021-02-13] MEDS: Nystatin 500,000 UNITS/5 ML UDCUP SSW SCH ×5 (09:31→23:18)
[2021-02-13] MEDS: Polyethylene Glycol 3350 17 GM Packet PO SCH (09:31)
[2021-02-13] MEDS: Aspirin Chewable 81 MG TAB PER TUBE SCH (09:34)
[2021-02-13] MEDS: Apixaban 2.5 MG TAB PO SCH ×2 (09:34→20:40)
[2021-02-13] MEDS: Senokot S 8.6-50 MG TAB PO SCH ×2 (09:34→20:40)
[2021-02-13] MEDS: Atenolol 50 MG TAB PO SCH (09:35)
[2021-02-13] MEDS: hydrALAZINE 25 MG TAB PO SCH ×2 (09:35→20:39)
[2021-02-13] MEDS: Acetaminophen 325 MG TAB PO PRN (09:35)
[2021-02-13] MEDS: Atorvastatin Calcium 40 MG TAB PO SCH (20:40)
[2021-02-13] MEDS: Tamsulosin HCl 0.4 MG CAP PO SCH (20:40)
[2021-02-14] MEDS: Nystatin 500,000 UNITS/5 ML UDCUP SSW SCH ×4 (08:34→20:19)
[2021-02-14] MEDS: Aspirin Chewable 81 MG TAB PER TUBE SCH (08:34)
[2021-02-14] MEDS: Atenolol 50 MG TAB PO SCH (08:35)
[2021-02-14] MEDS: Apixaban 2.5 MG TAB PO SCH ×2 (08:35→20:19)
[2021-02-14] MEDS: Senokot S 8.6-50 MG TAB PO SCH ×2 (08:38→20:20)
[2021-02-14] MEDS: hydrALAZINE 25 MG TAB PO SCH ×2 (08:38→20:19)
[2021-02-14] MEDS: Polyethylene Glycol 3350 17 GM Packet PO SCH (08:38)
[2021-02-14] MEDS: Atorvastatin Calcium 40 MG TAB PO SCH (20:19)
[2021-02-14] MEDS: Tamsulosin HCl 0.4 MG CAP PO SCH (20:19)
[2021-02-15] MEDS: Apixaban 2.5 MG TAB PO SCH ×2 (08:46→21:09)
[2021-02-15] MEDS: Aspirin Chewable 81 MG TAB PER TUBE SCH (08:46)
[2021-02-15] MEDS: Atenolol 50 MG TAB PO SCH (08:47)
[2021-02-15] MEDS: Nystatin 500,000 UNITS/5 ML UDCUP SSW SCH ×4 (08:48→21:09)
[2021-02-15] MEDS: Polyethylene Glycol 3350 17 GM Packet PO SCH (08:48)
[2021-02-15] MEDS: Senokot S 8.6-50 MG TAB PO SCH ×2 (08:49→21:10)
[2021-02-15] MEDS: hydrALAZINE 25 MG TAB PO SCH ×2 (08:52→21:10)
[2021-02-15 10:08] LABS: Anion Gap 14 mmol/L (10-20); BUN (Urea Nitrogen) 64 mg/dL (8.4-25.7); Calc. Creatinine Clearance 21 mL/min (70-130); Carbon Dioxide 21 mmol/L (23-31); Chloride 103 mmol/L (98-107); Glucose 133 mg/dL (83-110); Magnesium 2.5 mg/dL (1.6-2.6); Phosphorus 4.4 mg/dL (2.3-4.7); Potassium 3.8 mmol/L (3.5-5.1); Sodium 134 mmol/L (136-145)
[2021-02-15 14:25] LABS: Bilirubin Negative (Negative); Blood, Urine 1+ (Negative); Clarity Clear (Clear); Glucose, Urine (Dipstick) Normal (Negative); Ketone, Urine Negative (Negative); Leukocyte Negative Leu/uL (Negative); Mucous/LPF Rare LPF (<2+); Nitrite Negative (Negative); Protein, Urine (Dipstick) Negative (Neg-Trace); Specific Gravity, Urine 1.011 (1.002-1.036); Squamous Epithelial None Seen HPF (0-3); Urobilinogen Normal mg/dL (Less than 2); WBC/HPF 0-3 HPF (0-3)
[2021-02-15 14:35] LABS: Bacteria/HPF 1+ HPF (None Seen)
[2021-02-15 14:36] LABS: Urine Culture Reflex Yes Yes
[2021-02-15] MEDS: Acetaminophen 325 MG TAB PO PRN (17:13)
[2021-02-15] MEDS: Tamsulosin HCl 0.4 MG CAP PO SCH (21:09)
[2021-02-15] MEDS: Atorvastatin Calcium 40 MG TAB PO SCH (21:09)
[2021-02-16] MEDS: Acetaminophen 325 MG TAB PO PRN ×4 (01:46→21:58)
[2021-02-16] MEDS: Nystatin 500,000 UNITS/5 ML UDCUP SSW SCH ×4 (08:54→21:58)
[2021-02-16] MEDS: Atenolol 50 MG TAB PO SCH (08:55)
[2021-02-16] MEDS: hydrALAZINE 25 MG TAB PO SCH ×2 (08:55→21:57)
[2021-02-16] MEDS: Aspirin Chewable 81 MG TAB PER TUBE SCH (08:55)
[2021-02-16] MEDS: Apixaban 2.5 MG TAB PO SCH ×2 (08:55→21:57)
[2021-02-16] MEDS: Senokot S 8.6-50 MG TAB PO SCH ×2 (08:58→21:57)
[2021-02-16] MEDS: Polyethylene Glycol 3350 17 GM Packet PO SCH (08:58)
[2021-02-16] MEDS: Atorvastatin Calcium 40 MG TAB PO SCH (21:57)
[2021-02-16] MEDS: Tamsulosin HCl 0.4 MG CAP PO SCH (21:57)
[2021-02-17] MEDS: Acetaminophen 325 MG TAB PO PRN ×2 (03:54→13:26)
[2021-02-17 06:35] LABS: #Eosinphils 0.2 thou/uL (0.0-0.7); #Lymphocytes 1.6 thou/uL (1.20-3.40); #Monocytes 0.8 thou/uL (0.11-0.59); #Neutrophils 9.4 thou/uL (1.40-6.50); %Basophils 0.3 % (0.0-1.0); %Eosinophils 1.7 % (0.0-10.0); %Lymphocytes 13.3 % (21.0-51.0); %Monocytes 6.2 % (0.0-10.0); %Neutrophils 78.5 % (42.0-75.0); Hemoglobin 12.6 g/dL (14.0-18.0); Mean Corpuscular HGB CONC 34.4 g/dL (32.0-36.0); Mean Corpuscular Hemoglobin 31.1 pg (27.0-31.0); Mean Corpuscular Volume 90.6 fL (78.0-98.0); Mean Platelet Volume 7.6 fL (7.4-10.4); Platelet Count 307 thou/uL (130-400); RBC Distribution Width 12.1 % (11.5-14.5); Red Blood Cell (RBC) Count 4.03 mill/uL (4.70-6.10)
[2021-02-17 07:02] LABS: Anion Gap 15 mmol/L (10-20); BUN (Urea Nitrogen) 63 mg/dL (8.4-25.7); Calc. Creatinine Clearance 26 mL/min (70-130); Calcium 9.7 mg/dL (7.8-10.44); Carbon Dioxide 23 mmol/L (23-31); Chloride 103 mmol/L (98-107); Glucose 111 mg/dL (83-110); Magnesium 2.5 mg/dL (1.6-2.6); Potassium 4.6 mmol/L (3.5-5.1); Sodium 136 mmol/L (136-145)
[2021-02-17] MEDS ORDERED: cefTRIAXone\\ROCEPHIN 1 GM in Sodium Chloride 0.9% 100 ML IVPB SCH (09:00)
[2021-02-17] MEDS: Nystatin 500,000 UNITS/5 ML UDCUP SSW SCH ×4 (09:00→22:05)
[2021-02-17] MEDS: Apixaban 2.5 MG TAB PO SCH ×2 (09:00→22:04)
[2021-02-17] MEDS: Polyethylene Glycol 3350 17 GM Packet PO SCH (09:00)
[2021-02-17] MEDS: Atenolol 50 MG TAB PO SCH (09:00)
[2021-02-17] MEDS: Aspirin Chewable 81 MG TAB PER TUBE SCH (09:00)
[2021-02-17] MEDS: Senokot S 8.6-50 MG TAB PO SCH ×2 (09:00→22:05)
[2021-02-17] MEDS: hydrALAZINE 25 MG TAB PO SCH ×2 (09:00→22:04)
[2021-02-17 12:16] LABS: Bacteria/HPF None Seen HPF (None Seen); Bilirubin Negative (Negative); Blood, Urine Trace (Negative); Clarity Clear (Clear); Glucose, Urine (Dipstick) Normal (Negative); Ketone, Urine Negative (Negative); Leukocyte 75 Leu/uL (Negative); Nitrite Negative (Negative); Protein, Urine (Dipstick) Negative (Neg-Trace); RBC/HPF 0-3 HPF (0-3); Specific Gravity, Urine 1.012 (1.002-1.036); Squamous Epithelial 0-3 HPF (0-3); Urobilinogen Normal mg/dL (Less than 2); WBC/HPF 0-3 HPF (0-3); pH, Urine 6.5 (5.0-9.0)
[2021-02-17 12:18] LABS: Urine Culture Reflex Yes Yes
[2021-02-17] MEDS ORDERED: CEFEPIME HCL IN DEXTROSE 5 % 1 GM/50 ML BAG IVPB SCH (21:00)
[2021-02-17 22:03] LABS: SARS-CoV-2 PCR by NAA Not Detected (NotDetected)
[2021-02-17] MEDS: Cefepime 1 GM, Admixture Fee 1 EACH in Sodium Chloride 0.9% 100 ML IVPB SCH (22:03)
[2021-02-17] MEDS: metroNIDAZOLE 500 MG TAB PO SCH (22:04)
[2021-02-17] MEDS: Atorvastatin Calcium 40 MG TAB PO SCH (22:04)
[2021-02-17] MEDS: Tamsulosin HCl 0.4 MG CAP PO SCH (22:05)
[2021-02-18 05:31] LABS: #Eosinphils 0.1 thou/uL (0.0-0.7); #Monocytes 0.8 thou/uL (0.11-0.59); #Neutrophils 11.3 thou/uL (1.40-6.50); %Basophils 0.1 % (0.0-1.0); %Eosinophils 0.9 % (0.0-10.0); %Lymphocytes 7.6 % (21.0-51.0); %Monocytes 6.1 % (0.0-10.0); %Neutrophils 85.4 % (42.0-75.0); Hemoglobin 12.2 g/dL (14.0-18.0); Mean Corpuscular HGB CONC 32.3 g/dL (32.0-36.0); Mean Corpuscular Hemoglobin 30.2 pg (27.0-31.0); Mean Corpuscular Volume 93.3 fL (78.0-98.0); Mean Platelet Volume 7.3 fL (7.4-10.4); Platelet Count 339 thou/uL (130-400); RBC Distribution Width 12.2 % (11.5-14.5); Red Blood Cell (RBC) Count 4.05 mill/uL (4.70-6.10); White Blood Cell (WBC) Count 13.2 thou/uL (4.8-10.8)
[2021-02-18 05:53] LABS: Anion Gap 14 mmol/L (10-20); BUN (Urea Nitrogen) 60 mg/dL (8.4-25.7); Calc. Creatinine Clearance 27 mL/min (70-130); Calcium 9.9 mg/dL (7.8-10.44); Carbon Dioxide 24 mmol/L (23-31); Chloride 104 mmol/L (98-107); Glucose 126 mg/dL (83-110); Potassium 4.5 mmol/L (3.5-5.1); Sodium 137 mmol/L (136-145)
[2021-02-18] MEDS: Polyethylene Glycol 3350 17 GM Packet PO SCH (08:45)
[2021-02-18] MEDS: Nystatin 500,000 UNITS/5 ML UDCUP SSW SCH ×4 (08:45→21:31)
[2021-02-18] MEDS: Senokot S 8.6-50 MG TAB PO SCH ×2 (08:45→21:31)
[2021-02-18] MEDS: Acetaminophen 325 MG TAB PO PRN (08:45)
[2021-02-18] MEDS: metroNIDAZOLE 500 MG TAB PO SCH ×3 (08:46→21:31)
[2021-02-18] MEDS: Atenolol 50 MG TAB PO SCH (08:46)
[2021-02-18] MEDS: Aspirin Chewable 81 MG TAB PER TUBE SCH (08:47)
[2021-02-18] MEDS: Apixaban 2.5 MG TAB PO SCH ×2 (08:47→21:31)
[2021-02-18] MEDS: hydrALAZINE 25 MG TAB PO SCH ×2 (08:47→21:30)
[2021-02-18] MEDS: Cefepime 1 GM, Admixture Fee 1 EACH in Sodium Chloride 0.9% 100 ML IVPB SCH ×2 (11:39→21:31)
[2021-02-18] MEDS: Tamsulosin HCl 0.4 MG CAP PO SCH (21:30)
[2021-02-18] MEDS: Atorvastatin Calcium 40 MG TAB PO SCH (21:31)
[2021-02-19 05:21] LABS: #Eosinphils 0.3 thou/uL (0.0-0.7); #Lymphocytes 1.6 thou/uL (1.20-3.40); #Monocytes 0.8 thou/uL (0.11-0.59); #Neutrophils 7.6 thou/uL (1.40-6.50); %Basophils 0.2 % (0.0-1.0); %Eosinophils 2.6 % (0.0-10.0); %Lymphocytes 15.8 % (21.0-51.0); %Monocytes 7.7 % (0.0-10.0); %Neutrophils 73.8 % (42.0-75.0); Hemoglobin 11.9 g/dL (14.0-18.0); Mean Corpuscular HGB CONC 33.1 g/dL (32.0-36.0); Mean Corpuscular Hemoglobin 29.9 pg (27.0-31.0); Mean Corpuscular Volume 90.3 fL (78.0-98.0); Mean Platelet Volume 7.2 fL (7.4-10.4); Platelet Count 322 thou/uL (130-400); RBC Distribution Width 12.1 % (11.5-14.5); Red Blood Cell (RBC) Count 3.97 mill/uL (4.70-6.10); White Blood Cell (WBC) Count 10.2 thou/uL (4.8-10.8)
[2021-02-19 05:43] LABS: Anion Gap 15 mmol/L (10-20); BUN (Urea Nitrogen) 65 mg/dL (8.4-25.7); Calc. Creatinine Clearance 25 mL/min (70-130); Calcium 9.7 mg/dL (7.8-10.44); Carbon Dioxide 24 mmol/L (23-31); Chloride 102 mmol/L (98-107); Glucose 120 mg/dL (83-110); Magnesium 2.5 mg/dL (1.6-2.6); Potassium 4.3 mmol/L (3.5-5.1); Sodium 137 mmol/L (136-145)
[2021-02-19] MEDS: Cefepime 1 GM, Admixture Fee 1 EACH in Sodium Chloride 0.9% 100 ML IVPB SCH (09:45)
[2021-02-19] MEDS: Nystatin 500,000 UNITS/5 ML UDCUP SSW SCH ×4 (09:45→21:10)
[2021-02-19] MEDS: Apixaban 2.5 MG TAB PO SCH ×2 (09:46→21:09)
[2021-02-19] MEDS: Aspirin Chewable 81 MG TAB PER TUBE SCH (09:46)
[2021-02-19] MEDS: hydrALAZINE 25 MG TAB PO SCH ×2 (09:46→21:09)
[2021-02-19] MEDS: Atenolol 50 MG TAB PO SCH (09:46)
[2021-02-19] MEDS: Polyethylene Glycol 3350 17 GM Packet PO SCH (09:46)
[2021-02-19] MEDS: metroNIDAZOLE 500 MG TAB PO SCH ×3 (09:46→21:09)
[2021-02-19] MEDS: Senokot S 8.6-50 MG TAB PO SCH ×2 (09:47→21:10)
[2021-02-19] MEDS: cloNIDine 0.3mg/24 Hour PATCH TD SCH (09:53)
[2021-02-19 11:47] VITALS: BMI 26.9
[2021-02-19] MEDS: Atorvastatin Calcium 40 MG TAB PO SCH (21:09)
[2021-02-19] MEDS: Tamsulosin HCl 0.4 MG CAP PO SCH (21:09)
[2021-02-19] MEDS: Nystatin Powder 15 GM BOT TOP PRN (21:10)
[2021-02-20] MEDS ORDERED: Cefdinir 300 MG CAP PO SCH (09:00)
[2021-02-20] MEDS: metroNIDAZOLE 500 MG TAB PO SCH ×2 (09:07→13:58)
[2021-02-20] MEDS: Aspirin Chewable 81 MG TAB PER TUBE SCH (09:07)
[2021-02-20] MEDS: Polyethylene Glycol 3350 17 GM Packet PO SCH (09:08)
[2021-02-20] MEDS: hydrALAZINE 25 MG TAB PO SCH (09:08)
[2021-02-20] MEDS: Senokot S 8.6-50 MG TAB PO SCH (09:08)
[2021-02-20] MEDS: Atenolol 50 MG TAB PO SCH (09:08)
[2021-02-20] MEDS: Nystatin 500,000 UNITS/5 ML UDCUP SSW SCH ×3 (09:09→18:35)
[2021-02-20] MEDS: Apixaban 2.5 MG TAB PO SCH (09:09)
[2021-02-20 16:07] VITALS: TEMP 97.7
[2021-02-20 16:26] VITALS: BP 98/62
== END 2021-02-20 17:46 | DRG 64 ==
LOC: ERS 18:53 → NEURO 21:07 → OBSVTOIN 02-03 15:29
PROVIDERS: ADMIT Internal Medicine; ATTEND Internal Medicine
PROC: 4A10X4Z Monitoring of Central Nervous Electrical Activity, External Approach (ICD-10-PCS; principal; 2021-02-03)
PROC: 0DH63UZ Insertion of Feeding Device into Stomach, Percutaneous Approach (ICD-10-PCS; 2021-02-10)
DX: I63.9 Cerebral infarction, unspecified (principal); I21.4 Non-ST elevation (NSTEMI) myocardial infarction; I13.0 Hypertensive heart and chronic kidney disease with heart failure and stage 1 through stage 4 chronic kidney disease, or unspecified chronic kidney disease; I50.32 Chronic diastolic (congestive) heart failure; N18.4 Chronic kidney disease, stage 4 (severe); G93.40 Encephalopathy, unspecified; J98.11 Atelectasis; I65.22 Occlusion and stenosis of left carotid artery; R47.01 Aphasia; R13.12 Dysphagia, oropharyngeal phase; I48.0 Paroxysmal atrial fibrillation; D64.9 Anemia, unspecified; N40.1 Benign prostatic hyperplasia with lower urinary tract symptoms; R33.8 Other retention of urine; D72.829 Elevated white blood cell count, unspecified; E78.5 Hyperlipidemia, unspecified; Z20.822 Contact with and (suspected) exposure to COVID-19; Z86.73 Personal history of transient ischemic attack (TIA), and cerebral infarction without residual deficits; Z79.82 Long term (current) use of aspirin; Z79.899 Other long term (current) drug therapy
CPT/HCPCS: 36415; 36416; 51702; 70450; 70551; 71045; 71046; 74018; 80048; 80053; 80061; 80306; 80307; 81001; 81003; 81015; 82553; 83735; 84100; 84145; 84484; 85025; 87081; 87086; 93005; 93010; 93306; 93880; 95712; 95819; 95957; G0378; J0360; J0692; J0696; J1160; J1644; J1650; J2060; J2704; J3490; U0003; U0005